=== PATIENT | male | born 1965 | race African-American/Black ===

== ENCOUNTER 2020-05-06 11:53 | Inpatient (IN) | payer OTHER ==
[~2020-05-06] VITALS: Ht 162.6 cm; Wt 78.9 kg
[2020-05-06] MEDS ORDERED: GABAPENTIN100 MG (12:09)
[2020-05-06] MEDS ORDERED: FORTAMET500 MG (12:09)
== END 2020-05-09 17:15 | disposition home health service (06) | DRG 64 ==
LOC: ER 11:53 → SEC-K 17:04 → MEDJ 17:04 → MEDI 05-07 00:12 → MEDJ 05-07 08:38
PROVIDERS: ADMIT Specialist; ATTEND Specialist
PROC: BW28ZZZ Computerized Tomography (CT Scan) of Head (ICD-10-PCS; 2020-05-06)
PROC: 4A12X4Z Monitoring of Cardiac Electrical Activity, External Approach (ICD-10-PCS; principal; 2020-05-07)
PROC: B030YZZ Magnetic Resonance Imaging (MRI) of Brain using Other Contrast (ICD-10-PCS; 2020-05-07)
PROC: B345ZZZ Ultrasonography of Bilateral Common Carotid Arteries (ICD-10-PCS; 2020-05-07)
PROC: B24BZZZ Ultrasonography of Heart with Aorta (ICD-10-PCS; 2020-05-07)
DX: I63.81 Other cerebral infarction due to occlusion or stenosis of small artery (principal); E11.00 Type 2 diabetes mellitus with hyperosmolarity without nonketotic hyperglycemic-hyperosmolar coma (NKHHC); G81.11 Spastic hemiplegia affecting right dominant side; E11.65 Type 2 diabetes mellitus with hyperglycemia; Z91.14 Patient's other noncompliance with medication regimen; Z20.828 Contact with and (suspected) exposure to other viral communicable diseases; I10 Essential (primary) hypertension; E86.0 Dehydration
CPT/HCPCS: 70552

== ENCOUNTER 2020-09-12 07:12 | Outpatient (CLI) | payer OTHER ==
[~2020-09-12 07:12] MED LIST: FORTAMET500 MG; GABAPENTIN100 MG
== END 2020-09-12 07:24 | disposition home or self-care (01) ==
LOC: NUCLEAR 07:12
PROVIDERS: ATTEND Internal Medicine Cardiovascular Disease
DX: I25.9 Chronic ischemic heart disease, unspecified (principal); I65.29 Occlusion and stenosis of unspecified carotid artery
CPT/HCPCS: 78452; 93017; A9500; J0153

== ENCOUNTER 2020-09-15 14:00 | Outpatient (CLI) | payer OTHER | END 2020-09-15 14:32 | disposition HB | LOC: MRI 14:00 | PROVIDERS: ATTEND Specialist | DX: M48.061 Spinal stenosis, lumbar region without neurogenic claudication (principal) | CPT/HCPCS: 72148 ==

== ENCOUNTER 2020-10-11 00:24 | Emergency (ER) | payer OTHER ==
[~2020-10-11] VITALS: Ht 162.6 cm; Wt 78.5 kg
[2020-10-11] MEDS ORDERED: LANTUS SOL100 UNIT/1 SUBCUTANEO (00:45)
[2020-10-11] MEDS ORDERED: PEPCID AC20 MG (00:46)
[2020-10-11] MEDS ORDERED: JANUMET 50-1,01 EACH (00:46)
[2020-10-11] MEDS ORDERED: LIPITOR80 MG (00:47)
[2020-10-11] MEDS ORDERED: PLAVIX75 MG (00:48)
== END 2020-10-11 05:25 | disposition home or self-care (01) ==
LOC: ER 00:24
DX: R42 Dizziness and giddiness (principal); R20.2 Paresthesia of skin; R53.1 Weakness; Z03.818 Encounter for observation for suspected exposure to other biological agents ruled out

== ENCOUNTER 2021-01-17 22:35 | Emergency (ER) | payer OTHER ==
[~2021-01-17] VITALS: Ht 162.6 cm; Wt 73.9 kg
[~2021-01-17 22:35] MED LIST changes: +JANUMET 50-1,01 EACH; +LANTUS SOL100 UNIT/1 SUBCUTANEO; +LIPITOR80 MG; +PEPCID AC20 MG; +PLAVIX75 MG
[2021-01-17] MEDS ORDERED: CHILDREN'S ASPI81 MG (23:30)
[2021-01-17] MEDS ORDERED: CYMBALTA60 MG (23:30)
[2021-01-17] MEDS ORDERED: JENTADUETO XR1 EAC1 (23:32)
[2021-01-17] MEDS ORDERED: JARDIANCE25 MG (23:32)
[2021-01-17] MEDS ORDERED: ENALAPRIL MALE2.5 MG (23:32)
[2021-01-18] MEDS ORDERED: PEPCID AC20 MG PO (05:21)
== END 2021-01-18 05:43 | disposition home or self-care (01) ==
LOC: ER 22:35
DX: K29.20 Alcoholic gastritis without bleeding (principal); R11.2 Nausea with vomiting, unspecified; E86.0 Dehydration

== ENCOUNTER 2022-05-05 16:02 | Emergency (ER) | payer OTHER ==
[~2022-05-05] VITALS: Ht 157.5 cm; Wt 78.9 kg
[~2022-05-05 16:02] MED LIST changes: +CHILDREN'S ASPI81 MG; +CYMBALTA60 MG; +ENALAPRIL MALE2.5 MG; +JARDIANCE25 MG; +JENTADUETO XR1 EAC1; +PEPCID AC20 MG PO
== END 2022-05-05 21:17 | disposition home or self-care (01) ==
LOC: ER 16:02
DX: R11.10 Vomiting, unspecified (principal); Z91.013 Allergy to seafood; Z86.73 Personal history of transient ischemic attack (TIA), and cerebral infarction without residual deficits

== ENCOUNTER 2022-09-25 16:22 | Emergency (ER) | payer OTHER ==
[~2022-09-25] VITALS: Ht 170.2 cm; Wt 81.6 kg
== END 2022-09-25 21:20 | disposition home or self-care (01) ==
LOC: ER 16:22
DX: R10.84 Generalized abdominal pain (principal)

== ENCOUNTER 2023-02-18 07:37 | Outpatient (CLI) | payer OTHER | END 2023-02-18 07:39 | disposition home or self-care (01) | LOC: NUCLEAR 07:37 | PROVIDERS: ATTEND Internal Medicine | DX: I11.9 Hypertensive heart disease without heart failure (principal); I63.9 Cerebral infarction, unspecified; I25.118 Atherosclerotic heart disease of native coronary artery with other forms of angina pectoris | CPT/HCPCS: 78452; 93017; A9500; J0153 ==

== ENCOUNTER 2024-10-01 07:29 | Emergency (ER) | payer OTHER ==
[~2024-10-01] VITALS: Ht 162.6 cm; Wt 78.9 kg
[2024-10-01] MEDS ORDERED: TRIJARDY XR 101 EACH (07:32)
[2024-10-01] MEDS ORDERED: ZETIA10 MG (07:33)
[2024-10-01] MEDS ORDERED: 0.9 % SODIUM CHLORIDE 1,000 ML IV STA (08:23)
[2024-10-01] MEDS ORDERED: FAMOTIDINE/PF 20 MG in 0.9 % SODIUM CHLORIDE 8 ML IV PUSH STA (08:23)
[2024-10-01] MEDS ORDERED: ONDANSETRON HCL 2 MG/ML VIAL IV STA (08:23)
[2024-10-01] MEDS ORDERED: ONDANSETRON HCL 2 MG/ML VIAL ONE (08:34)
[2024-10-01] MEDS ORDERED: FAMOTIDINE/PF 20 MG/2 ML VIAL ONE (08:35)
[2024-10-01 09:00] LABS: HEMATOCRIT 42.6 % (39.0-48.0); HEMOGLOBIN 14.2 g/dL (13-16.00); MEAN CELL VOLUME 90.7 fL (80.0-100.00); MEAN CORPUSCULAR HEMOGLOBIN 30.2 pg (27.00-32.0); MEAN CORPUSCULAR HGB CONC 33.3 g/dl (32.0-36.0); PLATELET COUNT 325 K/uL (150-450); RED BLOOD COUNT 4.69 M/uL (4.00-6.00); RED CELL DISTRIBUTION WIDTH 13.6 % (11.5-14.5)
[2024-10-01 10:05] LABS: CALCIUM 8.7 mg/dL (8.5-10.1); CREATININE SERUM 0.77 mg/dL (0.70-1.30); GFR 103.05; POTASSIUM 3.74 mEq/L (3.5-5.1)
[2024-10-01 11:43] LABS: URINE APPEARANCE Clear; URINE BILIRRUBIN Negative (NEGATIVE); URINE BLOOD Negative; URINE COLOR Yellow; URINE KETONE Negative (NEGATIVE); URINE LEUKOCYTE Negative; URINE NITRATE Negative; URINE PROTEIN Trace (NEGATIVE)
[2024-10-01 11:46] LABS: URINE BACTERIA 119.9 uL (0.0-1933); URINE EPITHELIAL CELLS 8.2 uL (0.0-38.8); URINE WBC 5.2 uL (0.0-23.2)
[2024-10-01 11:47] LABS: URINE GLUCOSE >=1000 MG/DL (NEGATIVE); URINE RBC 1.4 uL (0.0-20.8)
== END 2024-10-01 15:58 | disposition home or self-care (01) ==
LOC: ER 07:32
PROVIDERS: Emergency Medicine
DX: K52.89 Other specified noninfective gastroenteritis and colitis (principal); I10 Essential (primary) hypertension; E11.9 Type 2 diabetes mellitus without complications; Z79.4 Long term (current) use of insulin; Z79.84 Long term (current) use of oral hypoglycemic drugs; Z86.73 Personal history of transient ischemic attack (TIA), and cerebral infarction without residual deficits; Z91.013 Allergy to seafood
CPT/HCPCS: 36415; 96365; 96366; 99283; J2405; J3490

== ENCOUNTER → 2024-11-06 | Emergency (ER) | payer OTHER ==
[~2024-11-06] VITALS: Ht 162.6 cm; Wt 78.0 kg
[~2024-11-06] MED LIST changes: +KETOROLAC TROMETHAMINE 60 MG VIAL IM ONE; +KETOROLAC TROMETHAMINE 60 MG VIAL IM STA; +TRIJARDY XR 101 EACH; +ZETIA10 MG
[2024-11-06 14:39] LABS: HEMATOCRIT 41.8 % (39.0-48.0); HEMOGLOBIN 14.3 g/dL (13-16.00); MEAN CELL VOLUME 88.5 fL (80.0-100.00); MEAN CORPUSCULAR HEMOGLOBIN 30.2 pg (27.00-32.0); MEAN CORPUSCULAR HGB CONC 34.1 g/dl (32.0-36.0); PLATELET COUNT 387 K/uL (150-450); RED BLOOD COUNT 4.73 M/uL (4.00-6.00); RED CELL DISTRIBUTION WIDTH 14.1 % (11.5-14.5)
[2024-11-06 14:59] LABS: CALCIUM 9.1 mg/dL (8.5-10.1); CREATININE SERUM 1.15 mg/dL (0.70-1.30); GFR 64.87; POTASSIUM 3.98 mEq/L (3.5-5.1)
== END | disposition home or self-care (01) ==
LOC: ER 13:52
PROVIDERS: General Practice
DX: M62.838 Other muscle spasm (principal); R07.89 Other chest pain; I10 Essential (primary) hypertension; Z91.013 Allergy to seafood
CPT/HCPCS: 36415; 71046; 93005; 96372; 99283; J1885